=== PATIENT | male | born 1945 | race Asian ===

== ENCOUNTER 2017-09-25 09:18 | Emergency (ER) | payer OTHER ==
[2017-09-25] MEDS: ACETAMINOPHEN 325 MG TAB PO (09:35)
[2017-09-25 09:37] LABS: ADD MAN DIFF? NO
[2017-09-25 09:40] LABS: BASOPHILS % 0.3 % (0.0-2.0); EOSINOPHILS # 0.2 10^3/ul (0.0-0.5); EOSINOPHILS % 2.8 % (0.0-7.0); HEMATOCRIT 36.9 % (42.0-52.0); HEMOGLOBIN 11.5 g/dl (14.0-18.0); LYMPHOCYTES # 1.5 10^3/ul (0.8-2.9); LYMPHOCYTES % 22.1 % (15.0-51.0); MEAN CORPUSCULAR HEMOGLOBIN 30.7 pg (29.0-33.0); MEAN CORPUSCULAR HGB CONC 31.2 g/dl (32.0-37.0); MEAN CORPUSCULAR VOLUME 98.7 fl (82.0-101.0); MONOCYTE # 1.2 10^3/ul (0.3-0.9); MONOCYTES % 17.6 % (0.0-11.0); NEUTROPHIL # 3.9 10^3/ul (1.6-7.5); NEUTROPHILS % 56.9 % (39.0-77.0); PLATELET COUNT 164 10^3/UL (140-415); RED BLOOD COUNT 3.74 10^6/ul (4.70-6.10); RED CELL DISTRIBUTION WIDTH 14.2 % (11.5-14.5)
[2017-09-25 09:40] LABS: WHITE BLOOD COUNT 6.8 10^3/ul (4.8-10.8)
[2017-09-25 09:59] LABS: ALANINE AMINOTRANSFERASE 24 IU/L (13-69); ALBUMIN 4.3 g/dl (3.3-4.9); ALKALINE PHOSPHATASE 111 IU/L (42-121); ANION GAP 20 (8-16); ASPARTATE AMINO TRANSFERASE 26 IU/L (15-46); BILIRUBIN,INDIRECT 0.3 mg/dl (0-1.1); BILIRUBIN,TOTAL 0.3 mg/dl (0.2-1.3); BLOOD UREA NITROGEN 77 mg/dl (7-20); CALCIUM 9.7 mg/dl (8.4-10.2); CARBON DIOXIDE 25 mmol/L (21-31); CHLORIDE 102 mmol/L (97-110); CREATININE 13.27 mg/dl (0.61-1.24); GLUCOSE 78 mg/dl (70-220); LIPASE 337 U/L (23-300); SODIUM 141 mmol/L (135-144); TOTAL PROTEIN 8.5 g/dl (6.1-8.1)
[2017-09-25 10:27] LABS: INR 1.41; PROTIME 17.5 Sec (11.9-14.9); PT RATIO 1.4
[2017-09-25] MEDS: NA BICARBONATE 8.4% 50 ML SYG IV (10:51)
[2017-09-25] MEDS: CA CHLORIDE 10% 10 ML SYRINGE IV (10:51)
[2017-09-25] MEDS: ALBUTEROL 0.5% (NEB) 2.5 MG/0.5 ML AMP INH (11:11)
== END 2017-09-25 13:11 | disposition home or self-care (01) ==
LOC: E/R 09:18
DX: S16.1XXA Strain of muscle, fascia and tendon at neck level, initial encounter (principal); R10.13 Epigastric pain; D64.9 Anemia, unspecified; R55 Syncope and collapse; E87.5 Hyperkalemia; N18.9 Chronic kidney disease, unspecified; I25.10 Atherosclerotic heart disease of native coronary artery without angina pectoris; V49.59XA Passenger injured in collision with other motor vehicles in traffic accident, initial encounter; Z91.15 Patient's noncompliance with renal dialysis; Z95.1 Presence of aortocoronary bypass graft; Z79.01 Long term (current) use of anticoagulants
CPT/HCPCS: 36415; 70450; 71045; 72125; 74176; 80048; 80076; 83690; 85025; 85610; 85730; 93005; 94664; 96374; 96375; 99285-25

== ENCOUNTER 2018-04-13 12:49 | Observation (INO) | payer OTHER ==
[2018-04-13 13:22] LABS: ADD MAN DIFF? NO; HAAIG REFLEX REFLEX FILED
[2018-04-13 13:26] LABS: WHITE BLOOD COUNT 12.6 10^3/ul (4.8-10.8)
[2018-04-13 13:26] LABS: BASOPHILS % 0.3 % (0.0-2.0); EOSINOPHILS # 0.4 10^3/ul (0.0-0.5); EOSINOPHILS % 3.2 % (0.0-7.0); HEMATOCRIT 30.8 % (42.0-52.0); HEMOGLOBIN 9.8 g/dl (14.0-18.0); LYMPHOCYTES # 1.3 10^3/ul (0.8-2.9); LYMPHOCYTES % 10.4 % (15.0-51.0); MEAN CORPUSCULAR HEMOGLOBIN 30.1 pg (29.0-33.0); MEAN CORPUSCULAR HGB CONC 31.8 g/dl (32.0-37.0); MEAN CORPUSCULAR VOLUME 94.5 fl (82.0-101.0); MEAN PLATELET VOLUME 9.6 fl (7.4-10.4); MONOCYTE # 0.8 10^3/ul (0.3-0.9); MONOCYTES % 6.6 % (0.0-11.0); NEUTROPHIL # 9.9 10^3/ul (1.6-7.5); NEUTROPHILS % 78.5 % (39.0-77.0); PLATELET COUNT 238 10^3/UL (140-415); RED BLOOD COUNT 3.26 10^6/ul (4.70-6.10); RED CELL DISTRIBUTION WIDTH 15.9 % (11.5-14.5)
[2018-04-13] MEDS ORDERED: ONDANSETRON 4 MG INJ IV ×2 (14:00→15:30)
[2018-04-13] MEDS ORDERED: ACETAMINOPHEN 325 MG TAB PO ×2 (14:00→15:30)
[2018-04-13 14:46] LABS: ANION GAP 16 (5-13); BLOOD UREA NITROGEN 79 mg/dl (7-20); CALCIUM 9.4 mg/dl (8.4-10.2); CARBON DIOXIDE 17 mmol/L (21-31); CHLORIDE 108 mmol/L (97-110); CREATININE 12.76 mg/dl (0.61-1.24); GLUCOSE 93 mg/dl (70-220); SODIUM 141 mmol/L (135-144)
[2018-04-13 14:52] LABS: POTASSIUM 7.1 mmol/L (3.5-5.1)
[2018-04-13] MEDS: CEFTRIAXONE 1 GM/50 ML (PMX) 50 ML IVPB (14:57)
[2018-04-13 14:58] LABS: TROPONIN-I 0.033 ng/ml (0.000-0.120)
[2018-04-13] MEDS: AZITHROMYCIN 500MG/NS (PMX) 250 ML IV (14:58)
[2018-04-13 15:18] LABS: HEPATITIS B SURFACE ANTIGEN NEGATIVE (NEGATIVE)
[2018-04-13] MEDS ORDERED: ZOLPIDEM 5 MG TAB PO (15:30)
[2018-04-13] MEDS ORDERED: NACL 0.9% 3 ML SYG IV (15:30)
[2018-04-13] MEDS ORDERED: DOCUSATE SODIUM 100 MG CAP PO (15:30)
[2018-04-13 15:36] LABS: HEPATITIS B CORE ANTIBODY NEGATIVE (NEGATIVE); HEPATITIS C VIRAL ANTIBODY NEGATIVE (NEGATIVE)
[2018-04-13] MEDS ORDERED: INSULIN REGULAR, HUMAN 100 UNIT/1 ML 3ML VIAL IVP (15:36)
[2018-04-13] MEDS ORDERED: NA POLYST SULFON 15 GM/60 ML BTL PO ×2 (15:36→16:00)
[2018-04-13] MEDS ORDERED: DEXTROSE 50% 50 ML SYRINGE IV ×2 (16:00)
[2018-04-13 18:59] LABS: INR 1.03; PROTIME 13.6 Sec (11.9-14.9); PT RATIO 1.1
[2018-04-13 19:07] LABS: LACTIC ACID 0.6 mmol/L (0.5-2.0)
[2018-04-13] MEDS: EPOETIN 3000 UNITS/1 ML INJ (ESRD) IV (21:11)
[2018-04-13] MEDS: WARFARIN 2 MG TAB PO (21:52)
[2018-04-13] MEDS: SEVELAMER 800 MG TAB PO (21:54)
[2018-04-14 05:39] LABS: HEMOGLOBIN A1C 5.6 % (0-5.9)
[2018-04-14 05:50] LABS: ANION GAP 13 (5-13); BLOOD UREA NITROGEN 41 mg/dl (7-20); CALCIUM 8.9 mg/dl (8.4-10.2); CARBON DIOXIDE 27 mmol/L (21-31); CHLORIDE 100 mmol/L (97-110); CREATININE 7.86 mg/dl (0.61-1.24); GLUCOSE 86 mg/dl (70-220); POTASSIUM 4.7 mmol/L (3.5-5.1); SODIUM 140 mmol/L (135-144)
[2018-04-14] MEDS: MULTIVIT/CA CARB/B CMPLX/FA TAB PO (08:15)
[2018-04-14] MEDS: SEVELAMER CARBONATE 800 MG TABLET PO (08:15)
[2018-04-14] MEDS: AMIODARONE 200 MG TAB PO (08:16)
[2018-04-14] MEDS: ENOXAPARIN 30 MG/0.3 ML SYG SC (08:21)
[2018-04-14] MEDS ORDERED: SEVELAMER CARBONATE 2.4 GM PKT PO (09:00)
== END 2018-04-14 12:10 | disposition home or self-care (01) ==
LOC: E/R 12:49 → 6WM 14:01
PROVIDERS: Internal Medicine
DX: I13.2 Hypertensive heart and chronic kidney disease with heart failure and with stage 5 chronic kidney disease, or end stage renal disease (principal); I50.9 Heart failure, unspecified; N18.6 End stage renal disease; Z99.2 Dependence on renal dialysis; E87.5 Hyperkalemia; D63.1 Anemia in chronic kidney disease; I25.10 Atherosclerotic heart disease of native coronary artery without angina pectoris; I48.2 Chronic atrial fibrillation; Z79.01 Long term (current) use of anticoagulants
CPT/HCPCS: 36415; 71045; 80048; 83036; 83605; 84484; 85025; 85610; 86704; 86709; 86803; 87040; 87340; 90935; 93005; 99291-25; G0378

== ENCOUNTER 2018-12-05 21:55 | Emergency (ER) | payer OTHER ==
[2018-12-06 01:11] LABS: ADD MAN DIFF? NO; HAAIG REFLEX REFLEX FILED
[2018-12-06 01:13] LABS: WHITE BLOOD COUNT 8.7 10^3/ul (4.8-10.8)
[2018-12-06 01:13] LABS: BASOPHIL # 0.1 10^3/ul (0.0-0.1); BASOPHILS % 0.6 % (0.0-2.0); EOSINOPHILS # 0.4 10^3/ul (0.0-0.5); EOSINOPHILS % 4.2 % (0.0-7.0); HEMATOCRIT 32.7 % (42.0-52.0); HEMOGLOBIN 9.8 g/dl (14.0-18.0); LYMPHOCYTES # 1.3 10^3/ul (0.8-2.9); LYMPHOCYTES % 14.5 % (15.0-51.0); MEAN CORPUSCULAR HEMOGLOBIN 29.3 pg (29.0-33.0); MEAN CORPUSCULAR VOLUME 97.6 fl (82.0-101.0); MEAN PLATELET VOLUME 9.4 fl (7.4-10.4); MONOCYTE # 0.6 10^3/ul (0.3-0.9); MONOCYTES % 7.3 % (0.0-11.0); NEUTROPHIL # 6.4 10^3/ul (1.6-7.5); NEUTROPHILS % 72.8 % (39.0-77.0); PLATELET COUNT 192 10^3/UL (140-415); RED BLOOD COUNT 3.35 10^6/ul (4.70-6.10); RED CELL DISTRIBUTION WIDTH 15.7 % (11.5-14.5)
[2018-12-06 01:32] LABS: ANION GAP 12 (5-13); BLOOD UREA NITROGEN 60 mg/dl (7-20); CALCIUM 9.5 mg/dl (8.4-10.2); CARBON DIOXIDE 21 mmol/L (21-31); CHLORIDE 108 mmol/L (97-110); CREATININE 10.67 mg/dl (0.61-1.24); GLUCOSE 111 mg/dl (70-220); POTASSIUM 5.4 mmol/L (3.5-5.1); SODIUM 141 mmol/L (135-144)
[2018-12-06 02:21] LABS: HEPATITIS B CORE ANTIBODY NEGATIVE (NEGATIVE); HEPATITIS C VIRAL ANTIBODY NEGATIVE (NEGATIVE)
[2018-12-06 03:03] LABS: HEPATITIS B SURFACE ANTIGEN NEGATIVE (NEGATIVE)
== END 2018-12-06 04:23 | disposition home or self-care (01) ==
LOC: E/R 12-06 04:23
DX: Z01.812 Encounter for preprocedural laboratory examination (principal); N18.6 End stage renal disease; I25.10 Atherosclerotic heart disease of native coronary artery without angina pectoris; Z87.891 Personal history of nicotine dependence; Z98.61 Coronary angioplasty status; Z79.01 Long term (current) use of anticoagulants
CPT/HCPCS: 71045; 80048; 85025; 86704; 86709; 86803; 87340; 99284-25

== ENCOUNTER 2018-12-08 08:15 | Observation (INO) | payer OTHER ==
[2018-12-08 09:07] LABS: ADD MAN DIFF? NO
[2018-12-08 09:12] LABS: BASOPHIL # 0.1 10^3/ul (0.0-0.1); BASOPHILS % 0.5 % (0.0-2.0); EOSINOPHILS # 0.3 10^3/ul (0.0-0.5); EOSINOPHILS % 3.4 % (0.0-7.0); HEMATOCRIT 33.8 % (42.0-52.0); HEMOGLOBIN 10.2 g/dl (14.0-18.0); LYMPHOCYTES # 1.1 10^3/ul (0.8-2.9); LYMPHOCYTES % 11.8 % (15.0-51.0); MEAN CORPUSCULAR HEMOGLOBIN 29.2 pg (29.0-33.0); MEAN CORPUSCULAR HGB CONC 30.2 g/dl (32.0-37.0); MEAN CORPUSCULAR VOLUME 96.8 fl (82.0-101.0); MEAN PLATELET VOLUME 9.6 fl (7.4-10.4); MONOCYTE # 0.7 10^3/ul (0.3-0.9); MONOCYTES % 7.5 % (0.0-11.0); NEUTROPHIL # 7.2 10^3/ul (1.6-7.5); NEUTROPHILS % 76.5 % (39.0-77.0); PLATELET COUNT 196 10^3/UL (140-415); RED BLOOD COUNT 3.49 10^6/ul (4.70-6.10); RED CELL DISTRIBUTION WIDTH 15.9 % (11.5-14.5)
[2018-12-08 09:12] LABS: WHITE BLOOD COUNT 9.4 10^3/ul (4.8-10.8)
[2018-12-08 09:31] LABS: ANION GAP 16 (5-13); BLOOD UREA NITROGEN 90 mg/dl (7-20); CALCIUM 9.7 mg/dl (8.4-10.2); CARBON DIOXIDE 16 mmol/L (21-31); CHLORIDE 109 mmol/L (97-110); GLUCOSE 97 mg/dl (70-220); SODIUM 141 mmol/L (135-144)
[2018-12-08 09:32] LABS: INR 1.73; PROTIME 20.3 Sec (11.9-14.9); PT RATIO 1.6
[2018-12-08 09:38] LABS: PARTIAL THROMBOPLASTIN TIME 36.7 Sec (23.0-35.0)
[2018-12-08 09:43] LABS: CREATININE 14.15 mg/dl (0.61-1.24)
[2018-12-08] MEDS ORDERED: ACETAMINOPHEN 325 MG TAB PO ×2 (10:00→10:30)
[2018-12-08] MEDS ORDERED: ONDANSETRON 4 MG INJ IV (10:00)
[2018-12-08] MEDS: NA BICARBONATE 8.4% 50 ML SYG IV (10:06)
[2018-12-08] MEDS: CALCIUM GLUCONATE 10% 1 GM in DEXTROSE 5% 100 ML IVPB (10:14)
[2018-12-08] MEDS ORDERED: ZOLPIDEM 5 MG TAB PO (10:30)
[2018-12-08] MEDS ORDERED: SODIUM CHLORIDE 0.9% 1L BAG IV (11:00)
[2018-12-08] MEDS ORDERED: ALBUMIN HUMAN 25% 100 ML IV (11:00)
[2018-12-08] MEDS: SEVELAMER CARBONATE 800 MG TABLET PO ×2 (12:15→17:28)
[2018-12-08 12:56] LABS: HAAIG REFLEX REFLEX FILED
[2018-12-08 13:49] LABS: HEPATITIS B SURFACE ANTIGEN NEGATIVE (NEGATIVE)
[2018-12-08 14:07] LABS: HEPATITIS B CORE ANTIBODY NEGATIVE (NEGATIVE); HEPATITIS C VIRAL ANTIBODY NEGATIVE (NEGATIVE)
[2018-12-08] MEDS: WARFARIN 2 MG TAB PO (17:28)
[2018-12-08] MEDS: AMIODARONE 200 MG TAB PO (21:00)
[2018-12-09] MEDS: SEVELAMER CARBONATE 800 MG TABLET PO ×3 (08:10→17:21)
[2018-12-09 08:47] LABS: HIV 1&2 ANTIBODY NEGATIVE (NEGATIVE)
[2018-12-09 11:42] LABS: ANION GAP 10 (5-13); BLOOD UREA NITROGEN 47 mg/dl (7-20); CALCIUM 9.3 mg/dl (8.4-10.2); CARBON DIOXIDE 24 mmol/L (21-31); CHLORIDE 106 mmol/L (97-110); GLUCOSE 99 mg/dl (70-220); POTASSIUM 4.5 mmol/L (3.5-5.1); SODIUM 140 mmol/L (135-144)
[2018-12-09 11:46] LABS: CREATININE 8.49 mg/dl (0.61-1.24)
[2018-12-09] MEDS: WARFARIN 2 MG TAB PO (17:21)
[2018-12-09] MEDS: AMIODARONE 200 MG TAB PO (21:37)
[2018-12-10] MEDS: SEVELAMER CARBONATE 800 MG TABLET PO ×3 (08:14→18:23)
[2018-12-10 11:07] LABS: INR 2.41; PROTIME 26.3 Sec (11.9-14.9); PT RATIO 2.1
[2018-12-10 11:17] LABS: ANION GAP 11 (5-13); BLOOD UREA NITROGEN 69 mg/dl (7-20); CALCIUM 9.1 mg/dl (8.4-10.2); CARBON DIOXIDE 24 mmol/L (21-31); CHLORIDE 105 mmol/L (97-110); CREATININE 10.65 mg/dl (0.61-1.24); GLUCOSE 79 mg/dl (70-220); POTASSIUM 5.4 mmol/L (3.5-5.1); SODIUM 140 mmol/L (135-144)
[2018-12-10] MEDS: WARFARIN 2 MG TAB PO (18:23)
[2018-12-10] MEDS: AMIODARONE 200 MG TAB PO (20:20)
== END 2018-12-10 21:15 | disposition home or self-care (01) ==
LOC: E/R 08:15 → TEL 10:26
DX: E87.5 Hyperkalemia (principal); I12.0 Hypertensive chronic kidney disease with stage 5 chronic kidney disease or end stage renal disease; N18.6 End stage renal disease; Z99.2 Dependence on renal dialysis; I25.10 Atherosclerotic heart disease of native coronary artery without angina pectoris; Z95.2 Presence of prosthetic heart valve; E78.5 Hyperlipidemia, unspecified; D63.1 Anemia in chronic kidney disease; I48.2 Chronic atrial fibrillation; Z79.01 Long term (current) use of anticoagulants; Z87.891 Personal history of nicotine dependence
CPT/HCPCS: 36415; 71045; 80048; 85025; 85610; 85730; 86703; 86704; 86709; 86803; 87340; 90935; 93005; 99285-25; G0378